=== PATIENT | female | born 1990 | race African-American/Black ===

== ENCOUNTER 2016-08-18 15:22 | Emergency (ER) | payer OTHER ==
[~2016-08-18] VITALS: Ht 162.6 cm; Wt 121.6 kg
[~2016-08-18 15:22] MED LIST: CEPH-264 PO; CYCL10TA2 PO; DIPH25CA58 PO; GLIM1TAB2 PO; LISI1TAB3 PO; METF100010 PO; NAPR500T PO; OXYC-244 PO; PHEN-318 PO
[2016-08-18] MEDS ORDERED: IV NORMAL SALINE 1000ML BAG 1,000 ML IV ONE (15:30)
[2016-08-18 16:13] LABS: BASO # 0.1 x10^3/uL (0.0-0.2); BASO % 1 % (0-3); EOS % 3 % (0-3); HEMATOCRIT 40.6 % (36.0-47.0); HEMOGLOBIN 13.9 g/dL (12.0-15.5); LYMPH % 27 % (24-48); MEAN CORPUSCULAR HEMOGLOBIN 27 pg (25-35); MEAN CORPUSCULAR HGB CONC 34 g/dL (31-37); MEAN CORPUSCULAR VOLUME 80 fL (79-100); MONO % 6 % (0-9); NEUT % 62 % (31-73); PLATELET COUNT 405 x10^3/uL (140-400); RED BLOOD COUNT 5.09 x10^6/uL (3.50-5.40); RED CELL DISTRIBUTION WIDTH 15.5 % (11.5-14.5); WHITE BLOOD COUNT 7.5 x10^3/uL (4.0-11.0)
[2016-08-18 16:16] LABS: BILIRUBIN,URINE NEGATIVE (NEG); GLUCOSE,URINE NEGATIVE (NEG); NITRITE,URINE NEGATIVE (NEG); PROTEIN,URINE >=300 mg/dL (NEG-TRACE); UROBILINOGEN,URINE 0.2 mg/dL (0.2 mg/dL)
--- NOTE | 2016-08-18 16:20 | RAD ---
Exam: AP portable chest. History: Syncope, hypertension, diabetes. Comparison: 12/02/2014. Findings: The heart and mediastinal structures are within normal limits for size. Lungs are without infiltrate. No pneumothorax or pleural effusion is appreciated. Impression: 1. No acute cardiopulmonary process.
[2016-08-18 16:22] LABS: CALCIUM 9.6 mg/dL (8.5-10.1); CREATININE 0.9 mg/dL (0.6-1.0); GFR 90.2; POTASSIUM 3.3 mmol/L (3.5-5.1)
[2016-08-18 16:26] LABS: BACTERIA,URINE MODERATE /HPF (0-FEW); RBC,URINE OCC /HPF (0-2); SQUAMOUS EPITHELIAL CELL,UR MANY /LPF; TRICHOMONAS,URINE PRESENT
[2016-08-18 16:29] LABS: ALBUMIN 3.8 g/dL (3.4-5.0); ALBUMIN/GLOBULIN RATIO 0.8 (1.0-1.7); TOTAL BILIRUBIN 0.3 mg/dL (0.2-1.0); TOTAL PROTEIN 8.4 g/dL (6.4-8.2)
--- NOTE | 2016-08-18 16:37 | EKG ---
[facility] [address] [place] [address] Test Date: 2016-08-18 Test Time: 15:30:27 Pat Name: COBY NELSON Department: Room: Gender: F U.S. Representative: : 1990 Requested By: LINUS COLLINS Order Number: [id number] Reading MD: Waldemar Xavier Measurements Intervals [place] Rate: 107 P: 49 AR: 144 QRS: 15 QRSD: 78 T: 38 QT: 326 QTc: 441 Interpretive Statements SINUS TACHYCARDIA CONSISTENT WITH SEPTAL MYOCARDIAL DAMAGE Electronically Signed On 08-19-2016 8:31:31 CDT by Waldemar Xavier
--- NOTE | 2016-08-18 16:40 | ED.ADGEN ---
Past Medical History Past Medical History: Anxiety, Diabetes-Type II Additional Past Medical Histor: Irregular menstrual periods Past Surgical History: Cholecystectomy Alcohol Use: Rarely Drug Use: None Adult General Chief Complaint Chief Complaint: SYNCOPE HPI HPI Patient is a 26 year old woman, history of type 2 diabetes mellitus managed with oral euglycemics, with history of syncope, who presents emergency department after episode of syncope. Patient states that she was standing at work, states that she been standing for several hours and had been feeling ill since last night when she had a witnessed episode of syncope. Patient states that yesterday she had been expressing some vomiting and some diarrhea, believed was due to some his feet. Patient did not eat anything this morning although she did take her medications last night as directed. Patient states that she began feeling slightly sweaty, and cold at the same time, and then passed out at work, states that she awoke immediately after landing on the ground, and was being offered water. She hit her shoulder on the way down did not strike her head. She did have a history of "a heart murmur that I grew out of". Denies any weakness, numbness or tingling, any headache, any vision changes , any current nausea, vomiting or diarrhea. Denies any urinary complaints, denies any possibility of , any discharge or drainage from the vagina. States that she has previously evaluated with her episode of syncope several years ago, was told it was likely due to "anxiety". No recent travel or surgery , history of DVT or PE in herself L Hermes, no family history of sudden cardiac in young people or cardiac abnormalities as far she is aware. Accu-Chek was 182. Patient states her blood sugars usually run in the 100s to the 120s. Review of Systems Review of Systems Constitutional: Denies fever or chills. [] Fatigue over the past 2 days. Eyes: Denies change in visual acuity. [] HENT: Denies nasal congestion or sore throat. [] Respiratory: Denies cough or shortness of breath. [] Cardiovascular: Denies chest pain or edema. [] GI: Denies abdominal pain, nausea, vomiting, bloody stools or diarrhea. [] Syncope. : Denies dysuria. [] Musculoskeletal: Denies back pain or joint pain. [] Integument: Denies rash. [] Neurologic: Denies headache, focal weakness or sensory changes. [] Endocrine: Denies polyuria or polydipsia. [] Lymphatic: Denies swollen glands. [] Psychiatric: Denies depression or anxiety. [] Current Medications Current Medications Current Medications Medications (Trade) Dose Ordered Sig/Gene Start Time Stop Time Status Last Admin Dose Admin Cephalexin HCl (Keflex) 500 mg 1X ONCE 08/18/16 17:30 08/18/16 17:31 DC 08/18/16 17:49 500 MG Metronidazole (Flagyl) 500 mg 1X ONCE 08/18/16 17:30 08/18/16 17:31 DC 08/18/16 17:49 500 MG Sodium Chloride (Iv Sodium Chloride 0.9% 1000ml Bag) 1,000 ml @ 1,000 mls/hr 1X ONCE 08/18/16 15:30 08/18/16 16:29 DC 08/18/16 15:55 1,000 MLS/HR Allergies Allergies Allergies Coded Allergies Type Severity Reaction Last Updated Verified No Known Drug Allergies 06/30/15 No Physical Exam Physical Exam Constitutional: Well developed, well nourished, no acute distress, non-toxic appearance. [] HENT: Normocephalic, atraumatic, bilateral external ears normal, oropharynx moist, no oral exudates, nose normal. [] Eyes: PERRLA, EOMI, conjunctiva normal, no discharge. [] Neck: Normal range of motion, no tenderness, supple, no stridor. [] Cardiovascular:Heart rate regular rhythm, no murmur, S1, S2, no rubs or gallops. [] Lungs & Thorax: Bilateral breath sounds clear to auscultation , no wheezing, rhonchi, rales. No chest or crepitus or tenderness. [] Abdomen: Bowel sounds normal, soft, no tenderness, no masses, no pulsatile masses. [] Skin: Warm, dry, no erythema, no rash. [] Back: No tenderness, no CVA tenderness. [] Extremities: No tenderness, no cyanosis, no clubbing, ROM intact, no edema. Negative Homans sign. [] Neurologic: Alert and oriented X 3, normal motor function, normal sensory function, no focal deficits noted. [] Psychologic: Affect normal, judgement normal, mood normal. [] Current Patient Data Vital Signs Vital Signs Date Time Temp Pulse Resp B/P Pulse Ox O2 Delivery O2 Flow Rate FiO2 08/18/16 15:22 99.4 112 20 137/85 99 Room Air 99.4 Lab Values Laboratory Tests Test 08/18/16 14:47 08/18/16 15:40 08/18/16 16:04 POC Urine HCG, Qualitative Hcg negative (Negative) Urine Collection Type Void Urine Color Yellow Urine Clarity Cloudy Urine pH 6.0 Urine Specific [place] 1.025 Urine Protein >=300mg/dL (NEG-TRACE) Urine Glucose (UA) Negativemg/dL (NEG) Urine Ketones (Stick) Tracemg/dL (NEG) Urine Blood Moderate (NEG) Urine Nitrite Negative (NEG) Urine Bilirubin Negative (NEG) Urine Urobilinogen Dipstick 0.2mg/dL (0.2 mg/dL) Urine Leukocyte Esterase Small (NEG) Urine RBC Occ/HPF (0-2) Urine WBC 11-20/HPF (0-4) Urine Squamous Epithelial Cells Many/LPF Urine Bacteria Moderate/HPF (0-FEW) Urine Hyaline Casts Many/HPF Urine Mucus Marked/LPF Urine Trichomonas Present White Blood Count 7.5x10^3/uL (4.0-11.0) Red Blood Count 5.09x10^6/uL (3.50-5.40) Hemoglobin 13.9g/dL (12.0-15.5) Hematocrit 40.6% (36.0-47.0) Mean Corpuscular Volume 80fL (79-100) Mean Corpuscular Hemoglobin 27pg (25-35) Mean Corpuscular Hemoglobin Concent 34g/dL (31-37) Red Cell Distribution Width 15.5% (11.5-14.5) H Platelet Count 405x10^3/uL (140-400) H Neutrophils (%) (Auto) 62% (31-73) Lymphocytes (%) (Auto) 27% (24-48) Monocytes (%) (Auto) 6% (0-9) Eosinophils (%) (Auto) 3% (0-3) Basophils (%) (Auto) 1% (0-3) Neutrophils # (Auto) 4.7x10^3uL (1.8-7.7) Lymphocytes # (Auto) 2.0x10^3/uL (1.0-4.8) Monocytes # (Auto) 0.5x10^3/uL (0.0-1.1) Eosinophils # (Auto) 0.2x10^3/uL (0.0-0.7) Basophils # (Auto) 0.1x10^3/uL (0.0-0.2) D-Dimer (Prudence) 0.31ug/mlFEU (0.00-0.50) Sodium Level 139mmol/L (136-145) Potassium Level 3.3mmol/L (3.5-5.1) L Chloride Level 103mmol/L (98-107) Carbon Dioxide Level 23mmol/L (21-32) Anion Gap 13 (6-14) Blood Urea Nitrogen 9mg/dL (7-20) Creatinine 0.9mg/dL (0.6-1.0) Estimated GFR (Cockcroft-Gault) 90.2 BUN/Creatinine Ratio 10 (6-20) Glucose Level 161mg/dL (70-99) H Calcium Level 9.6mg/dL (8.5-10.1) Total Bilirubin 0.3mg/dL (0.2-1.0) Aspartate Amino Transferase (AST) 21U/L (15-37) Alanine Aminotransferase (ALT) 31U/L (14-59) Alkaline Phosphatase 69U/L (46-116) Troponin I Quantitative < 0.017ng/mL (0.000-0.055) WE-Crz-N-Type Natriuretic Peptide 37pg/mL (0-124) Total Protein 8.4g/dL (6.4-8.2) H Albumin 3.8g/dL (3.4-5.0) Albumin/Globulin Ratio 0.8 (1.0-1.7) L Laboratory Tests 08/18/16 16:04 Laboratory Tests 08/18/16 16:04 EKG EKG EC: Sinus rhythm, heart rate 99 bpm, upright axis, QTC of 429, SC of 148 , QR 78, contour normality is noted in the septal leads, no delta with identified, no signs of other abnormalities, as interpreted by me. [] Radiology/Procedures Radiology/Procedures [] [facility] [address] [place], [place] [id number] IMAGING REPORT Signed PATIENT: COBY NELSON ACCOUNT: [id number] : 1990 LOCATION: ER AGE: 26 SEX: F EXAM STATUS: PRE ER ORD. PHYSICIAN: LINUS COLLINS DO REASON: syncope PROCEDURE: PORTABLE CHEST 1V Exam: AP portable chest. History: Syncope, hypertension, diabetes. Comparison: 12/02/2014. Findings: The heart and mediastinal structures are within normal limits for size. Lungs are without infiltrate. No pneumothorax or pleural effusion is appreciated. Impression: 1. No acute cardiopulmonary process. DICTATED and SIGNED BY: MARY TERESA MD DATE: 08/18/16 1617 CC: LINUS COLLINS DO; NO PCP ~ Course & Med Decision Making Course & Med Decision Making Pertinent Labs and Imaging studies reviewed. (See chart for details) H complaining of feeling slightly "tired and rundown". Did have several episodes of vomiting and diarrhea yesterday, but none today. No abdominal pain. Vital signs within normal limits in the emergency department. Is receiving IV fluids. She states that she has been compliant with her medications. She denies any concerning history or exposures. As stated patient is a history of similar events previously, which were attributed to "stress and anxiety". Patient had been standing for some time before it occurred, has not eaten yet today. Laboratory studies obtained, including a d-dimer, all within normal limits. Patient's heart rate was in the 80s to 90s shortly after arrival in the ED. X- ray was unremarkable, and hCG was negative. Patient's urinalysis did reveal evidence of bacteria, white blood cells, and recognizes. I did discuss these findings with the patient, he has an appointment with her FINAL INSPECTOR BALANCE WHEEL next week, for a well patient visit, and will see the pulp pelvic examination that time, does decline pelvic exam at this point. She has no symptoms, I discussed th that recognizes as a sexually transmitted disease with the patient, she declined additional treatment at this point for additional evaluation as stated, will follow-up with her doctor, was given metronidazole and Keflex in the emergency department which she tolerated without issue. Was given precautions and instructions for these medications. Patient with normal orthostatics, and related difficulty in the ED, states she is feeling better at this time. As concerning findings identified, and no other concerning history, patient agreeable plan to follow-up with her primary care provider next week, and to return to the ED for any concerning symptoms as discussed. Discharged home with instructions and precautions as stated, with prescriptions for Keflex and metronidazole. Dragon Disclaimer Dragon Disclaimer This electronic medical record was generated, in whole or in part, using a voice recognition dictation system. Departure Impression: Primary Impression: Urinary tract infection Additional Impressions: Syncope Trichomoniasis Disposition: HOME, SELF-CARE Condition: IMPROVED Scripts Cephalexin (Keflex)500 Mg Capsule1 Cap PO BID #5 CAP Please take one tablet by mouth twice daily for 3 days to treat infection. First dose given in the emergency department. Prov:LINUS COLLINS DO 08/18/16 Metronidazole 500 Mg Tablet1 Tab PO BID #13 TAB Take one tablet by mouth twice daily for 7 days to treat infection. First dose given in the emergency department. Prov:LINUS COLLINS DO 08/18/16 Problem Qualifiers LINUS COLLINS DO Aug 18, 2016 16:40
[2016-08-18] MEDS ORDERED: METRONIDAZOLE 500 MG TABLET. PO ONE (17:30)
[2016-08-18] MEDS ORDERED: CEPHALEXIN 250 MG CAPSULE. PO ONE (17:30)
[2016-08-18] MEDS ORDERED: METR500T4 PO (18:08)
[2016-08-18] MEDS ORDERED: CEPH-264 PO (18:08)
--- NOTE | 2016-08-19 07:22 | EKG ---
[facility] [address] [place] [address] Test Date: 2016-08-18 Test Time: 15:55:03 Pat Name: COBY NELSON Department: Room: Gender: F Board Writer: : 1990 Requested By: LINUS COLLINS Order Number: [id number] Reading MD: Waldemar Xavier Measurements Intervals [place] Rate: 99 P: 39 [place]: 148 QRS: 18 QRSD: 78 T: 36 QT: 330 QTc: 429 Interpretive Statements SINUS RHYTHM CONSISTENT WITH SEPTAL MYOCARDIAL DAMAGE Electronically Signed On 08-19-2016 8:32:15 CDT by Waldemar Xavier
== END 2016-08-18 18:18 | disposition home or self-care (01) ==
LOC: ER 15:22
DX: R55 Syncope and collapse (principal); N39.0 Urinary tract infection, site not specified; A59.9 Trichomoniasis, unspecified; R19.7 Diarrhea, unspecified; F41.9 Anxiety disorder, unspecified; E11.9 Type 2 diabetes mellitus without complications; Z90.49 Acquired absence of other specified parts of digestive tract
CPT/HCPCS: 36415; 71010; 80053; 80305; 81001; 83880; 84484; 84703; 85027; 85379; 87086; 93005; 96360; 99285; J7030; 81025; G0481

== ENCOUNTER → 2018-06-15 | Outpatient (CLI) | payer OTHER ==
[~2018-06-15] MED LIST changes: +FAMO40TA57 PO; +METR-34 PO; +NAPR-683 PO; -NAPR500T PO; -OXYC-244 PO; +OXYC1TAB19 PO; +PRED50TA PO
--- NOTE | 2018-06-15 16:00 | RAD ---
Indication:Heavy bleeding. Pain. TECHNIQUE: Grayscale, color Doppler and spectral waveform images of the pelvis obtained. COMPARISON: None FINDINGS: Uterus is anteverted and measures 8.3 x 3.4 x 4.3 cm (longitudinal, AP, transverse). Endometrial stripe measures 4 mm in thickness and is within normal limits. There is an ill-defined isoechoic masslike lesion in the right anterolateral myometrium measuring 1.7 x 1.7 x 2.1 cm with internal vascularity. The right ovary measures 4.0 x 2.7 x 2.7 cm and shows blood flow with multiple follicles. The left ovary measures 3.6 x 2.5 x 2.2 cm and shows blood flow with multiple follicles. There is a 1.9 x 1.6 x 1.9 cm isoechoic masslike lesion in the right ovary with trace peripheral vascularity. No free pelvic fluid. IMPRESSION: 1. Bilateral ovaries demonstrate evidence of blood flow. 2. Solitary right anterolateral uterine body fibroid. 3. Complex lesion in the right ovary likely complicated cyst. Follow-up ultrasound in 8-12 weeks recommended. Electronically signed by: Hieu Desai DO (06/15/2018 3:57 PM) [id number]
== END | disposition home or self-care (01) ==
LOC: US 14:07
PROVIDERS: ATTEND Family Medicine
DX: D25.9 Leiomyoma of uterus, unspecified (principal); N83.8 Other noninflammatory disorders of ovary, fallopian tube and broad ligament
CPT/HCPCS: 76830; 76856

== ENCOUNTER 2018-08-22 11:45 | Emergency (ER) | payer OTHER ==
[~2018-08-22] VITALS: Ht 162.6 cm; Wt 124.3 kg
[~2018-08-22 11:45] MED LIST changes: -FAMO40TA57 PO; -PRED50TA PO
[2018-08-22 11:47] VITALS: BP 167/93
[2018-08-22] MEDS ORDERED: diphenhydrAMINE 50 MG/ML VIAL IVP ONE (12:00)
[2018-08-22] MEDS ORDERED: FAMOTIDINE 20 MG/2 ML VIAL IVP ONE (12:00)
[2018-08-22] MEDS ORDERED: methylPREDNISolone SOD SUCC PF 125 MG/2 ML VIAL. IV ONE (12:00)
[2018-08-22] MEDS ORDERED: PRED50TA PO (15:14)
[2018-08-22] MEDS ORDERED: FAMO40TA57 PO (15:14)
--- NOTE | 2018-08-22 15:14 | PHYS DOC ---
Past Medical History Past Medical History: Anxiety, Diabetes-Type II, Hypertension Additional Past Medical Histor: Irregular menstrual periods Past Surgical History: Cholecystectomy Alcohol Use: Rarely Drug Use: None Adult General Chief Complaint Chief Complaint: FACE PAIN HPI HPI Patient is a 28 year old female presented to ER today for evaluation of left upper lip swollen. She woke up this morning with the problem. Patient denies any chest pain, no trouble breathing, no tongue or throat swelling. Patient is on lisinopril for hypertension for the last 2 year. Patient denies any recent new medication or antibiotic. Review of Systems Review of Systems Constitutional: Denies fever or chills [] Eyes: Denies change in visual acuity, redness, or eye pain [] HENT: Denies nasal congestion or sore throat. Positive for left upper lip swollen. Respiratory: Denies cough or shortness of breath [] Cardiovascular: No additional information not addressed in HPI [] GI: Denies abdominal pain, nausea, vomiting, bloody stools or diarrhea [] : Denies dysuria or hematuria [] Musculoskeletal: Denies back pain or joint pain [] Integument: Denies rash or skin lesions [] Neurologic: Denies headache, focal weakness or sensory changes [] Endocrine: Denies polyuria or polydipsia [] All other systems were reviewed and found to be within normal limits, except as documented in this note. Current Medications Current Medications Current Medications Medications (Trade) Dose Ordered Sig/Gene Start Time Stop Time Status Last Admin Dose Admin Diphenhydramine HCl (Benadryl) 50 mg 1X ONCE 08/22/18 12:00 08/22/18 12:03 DC 08/22/18 12:12 50 MG Famotidine (Pepcid Vial) 20 mg 1X ONCE 08/22/18 12:00 08/22/18 12:03 DC 08/22/18 12:14 20 MG Methylprednisolone Sodium Succinate (SOLU-Medrol 125MG VIAL) 125 mg 1X ONCE 08/22/18 12:00 08/22/18 12:03 DC 08/22/18 12:11 125 MG Allergies Allergies Allergies Coded Allergies Type Severity Reaction Last Updated Verified No Known Drug Allergies 06/30/15 No Physical Exam Physical Exam Constitutional: Well developed, well nourished, no acute distress, non-toxic appearance. [] HENT: Normocephalic, atraumatic, bilateral external ears normal, oropharynx moist, no oral exudates, nose normal. LEFT UPPER LIP SWOLLEN, NO RASH, NOT TENDER. NO TONGUE SWELLING. Eyes: PERRLA, EOMI, conjunctiva normal, no discharge. [] Neck: Normal range of motion, no tenderness, supple, no stridor. [] Cardiovascular:Heart rate regular rhythm, no murmur [] Lungs & Thorax: Bilateral breath sounds clear to auscultation [] Abdomen: Bowel sounds normal, soft, no tenderness, no masses, no pulsatile masses. [] Skin: Warm, dry, no erythema, no rash. [] Back: No tenderness, no CVA tenderness. [] Extremities: No tenderness, no cyanosis, no clubbing, ROM intact, no edema. [] Neurologic: Alert and oriented X 3, normal motor function, normal sensory function, no focal deficits noted. [] Psychologic: Affect normal, judgement normal, mood normal. [] Current Patient Data Vital Signs Vital Signs Date Time Temp Pulse Resp B/P (MAP) Pulse Ox O2 Delivery O2 Flow Rate FiO2 08/22/18 11:47 98.5 111 20 167/93 (117) 99 Room Air 98.5 EKG EKG [] Radiology/Procedures Radiology/Procedures [] Course & Med Decision Making Course & Med Decision Making Pertinent Labs and Imaging studies reviewed. (See chart for details) Patient felt much better, swelling of left upper lip subsided. Dragon Disclaimer Dragon Disclaimer This electronic medical record was generated, in whole or in part, using a voice recognition dictation system. Departure Departure Impression: Primary Impression: Angio-edema Disposition: 01 HOME, SELF-CARE Condition: STABLE Referrals: KYLIE LIRIANO MD (PCP) follow up with pcp tomorrow. STOP TAKING LISINOPRIL NOW. Patient Instructions: Angioedema, [id number] Scripts Famotidine (PEPCID) 40 Mg Tablet 40 MG PO HS, #7 TAB Prov: LINA CASAS DO 08/22/18 Prednisone (PREDNISONE) 50 Mg Tablet 1 TAB PO DAILY, #7 TAB Prov: LINA CASAS DO 08/22/18 LINA CASAS DO Aug 22, 2018 15:14
== END 2018-08-22 15:24 | disposition home or self-care (01) ==
LOC: ER 11:45
DX: T78.3XXA Angioneurotic edema, initial encounter (principal); F41.9 Anxiety disorder, unspecified; E11.9 Type 2 diabetes mellitus without complications; I10 Essential (primary) hypertension; Z90.49 Acquired absence of other specified parts of digestive tract
CPT/HCPCS: 96374; 96375; 99284; J1200; J2930; J3490

== ENCOUNTER 2021-05-22 15:29 | Emergency (ER) | payer OTHER ==
[~2021-05-22] VITALS: Ht 162.6 cm; Wt 128.6 kg
[~2021-05-22 15:29] MED LIST changes: +CYCL10TA19 PO; -CYCL10TA2 PO; +FAMO40TA57 PO; -GLIM1TAB2 PO; +GLIM1TAB7 PO; -LISI1TAB3 PO; +LISI1TAB35 PO; +PRED50TA PO
[2021-05-22] MEDS ORDERED: LIDOCAINE 1% Multi-Dose 20 ML VIAL. INJ ONE (17:15)
[2021-05-22 17:19] VITALS: BP 141/77
[2021-05-22] MEDS ORDERED: CEPH500C PO (17:54)
--- NOTE | 2021-05-22 17:54 | PHYS DOC ---
Past Medical History Past Medical History: Diabetes-Type II Additional Past Medical Histor: Irregular menstrual periods (PAXTON HEAD) Past Surgical History: Cholecystectomy (PAXTON HEAD) Smoking Status: Never Smoker Alcohol Use: None Drug Use: None (PAXTON HEAD) General Adult EDM: Chief Complaint: ABSCESS HPI: HPI: Patient is a 31 year old A0 female who presents with left sided labial swelling causing her pain. Patient states she first noticed a small bump and mild discomfort 3 days ago and it has worsened since. She reports drainage that consisted of "blood mixed with whitish stuff." Patient reports she is 9 weeks without any low abdominal discomfort, change in vaginal discharge, dysuria or hematuria. (PAXTON HEAD) Review of Systems: Review of Systems: ROS negative or noncontributory except as mentioned in HPI. (PAXTON HEAD) Heart Score: C/O Chest Pain: No (PAXTON HEAD) Current Medications: Current Medications Medications (Trade) Dose Ordered Sig/Gene Start Time Stop Time Status Last Admin Dose Admin Lidocaine HCl (Lidocaine 1% 20ml Vial) 20 ml 1X ONCE 05/22/21 17:15 05/22/21 17:24 DC 05/22/21 17:15 20 ML (PAXTON HEAD) Allergies: Allergies: Allergies Coded Allergies Type Severity Reaction Last Updated Verified No Known Drug Allergies 06/30/15 No (PAXTON HEAD) Physical Exam: PE: Constitutional: Well developed, well nourished, no acute distress, non-toxic appearance. HENT: Normocephalic, atraumatic, bilateral external ears normal, nose normal. Eyes: EOMI, conjunctiva normal, no discharge. Skin: Left vaginal labia with firm, well-circumscribed, flesh-colored lesion with surrounding induration with punctate opening. Skin otherwise warm, dry, no erythema, no rash. Extremities: No tenderness, no cyanosis, no clubbing, ROM intact, no edema. (PAXTON HEAD) Current Patient Data: Vital Signs: Vital Signs Date Time Temp Pulse Resp B/P (MAP) Pulse Ox O2 Delivery O2 Flow Rate FiO2 05/22/21 17:19 97.5 120 18 141/77 (98) 98 Room Air 97.5 (PAXTON HEAD) Course & Med Decision Making: Course & Med Decision Making Pertinent Labs and Imaging studies reviewed. (See chart for details) Patient is a 31-year-old female who presents with left-sided low labial swelling and drainage. Appearance of the lesion is consistent with a Bartholin gland abscess. During incision and drainage prior to Word catheter placement, the incision did not result in any purulent drainage. A second incision was made with similar results. In discussion with the patient, she admitted that when she stood up in the waiting room of the emergency department, she felt a "anand of liquid and release of pressure." It seems now more likely that she had a cellulitis and small abscess in the region above Bartholin gland that drained on its own just prior to placement in the exam room. Patient will be treated with p.o. antibiotics and she is advised to follow-up with her CRISIS WORKER. She states she has an appointment next week. Patient was given return precautions. She understands and is agreeable to discharge plan. (PAXTON HEAD) Dragon Disclaimer: Dragon Disclaimer: This electronic medical record was generated, in whole or in part, using a voice recognition dictation system. (PAXTON HEAD) Departure Departure Impression: Primary Impression: Cellulitis of labia Disposition: 01 HOME / SELF CARE / HOMELESS Condition: IMPROVED Referrals: KYLIE LIRIANO MD (PCP) Patient Instructions: Cellulitis, [id number] Additional Instructions: EMERGENCY DEPARTMENT GENERAL DISCHARGE INSTRUCTIONS Thank you for coming to [facility] Emergency Department (ED) today and trusting us with you care. We trust that you had a positive ex perience in our Emergency Department. If you wish to speak to the department management, you may call the director at . YOUR FOLLOW UP INSTRUCTIONS ARE FOLLOWS: 1. Follow up with your primary care doctor. If you do not have a primary do ctor, please ask for a resource list of physicians or clinics that may be able to assist you with follow up care. 2. The emergency provider has interpreted your imaging studies, if any were ordered. The radiology aviation medicine specialist also reviewed them. If there is a change in the findings, you will be notified in 48 hours when at all possible. 3. If a lab test or culture has been done, your results will be reviewed and you will be notified if you need a change in treatment. 4. Follow instructions verbalized to you and refer to the printouts if needed. ADDITIONAL INSTRUCTIONS AND INFORMATION: 1. Your care today has been supervised by a physician who is specially trained in emergency care. Many problems require more than one evaluation for a complete diagnosis and treatment. We recommend that you schedule your follow up appointment as recommended to ensure complete treatment of you illness or injury. If you are unable to obtain follow up care and continue to have a problem, or if your condition worsens, we recommend that you return to the ED. 2. We are not able to safely determine your condition over the phone nor are we able to give sound medical advice over the phone. For these safety reasons, if you call for medical advice we will ask you to come to the ED for further evaluation. 3. If you have any questions regarding these discharge instructions please call the ED at . SAFETY INFORMATION: In the interest of safety, wellness, and injury prevention; we encourage you to wear your seat belt, if you smoke; quite smoking, and we encourage family to use a protective helmet for bicycling and other sporting events that present an increased risk for head injury. IF YOUR SYMPTOMS WORSEN OR NEW SYMPTOMS DEVELOP, OR YOU HAVE CONCERNS ABOUT YOUR CONDITION; OR IF YOUR CONDITION WORSENS WHILE YOU ARE WAITING FOR YOUR FOLLOW UP APPOINTMENT; EITHER CONTACT YOUR PRIMARY CARE DOCTOR, THE PHYSICIAN WHOSE NAME AND NUMBER YOU WERE GIVEN, OR RETURN TO THE ED IMMEDIATELY. Scripts Cephalexin (KEFLEX) 500 Mg Capsule 1 CAP PO BID, #20 CAP Prov: PAXTON HEAD 05/22/21 Attending Signature Attending Signature I have reviewed the PA/DENTISTRY PROFESSOR's note and plan of care. I was available for consultation as needed during the patient's visit in the emergency department. I agree with the clinical impression, plan, and disposition. (MARY JJ DO) PAXTON HEAD May 22, 2021 17:54 MARY JJ DO May 23, 2021 11:11
== END 2021-05-22 18:01 | disposition home or self-care (01) ==
LOC: ER 15:29
DX: O26.891 Other specified pregnancy related conditions, first trimester (principal); N76.2 Acute vulvitis; E11.9 Type 2 diabetes mellitus without complications; Z90.49 Acquired absence of other specified parts of digestive tract; Z3A.09 9 weeks gestation of pregnancy
CPT/HCPCS: 56420; 99284; J3490